=== PATIENT | female | born 1965 | race Caucasian/White ===

== ENCOUNTER 2021-08-15 16:35 | Emergency (ER) | payer OTHER, SELFPAY ==
--- NOTE | 2021-08-15 16:47 | ED.PSYCH ---
HPI - Psych General Chief Complaint: Extremity Injury, Lower Stated Complaint: psych Time Seen by Provider: 08/15/21 16:38 Source: patient and RN notes reviewed Mode of arrival: ambulatory Limitations: no limitations History of Present Illness HPI Narrative: patient refuses to give any information to the cashier or checker stock clerk regarding her address or any other information. Initially she stated that her hips hurt. She was dropped here by the police department. Then after sitting down to interview her she said that her hip to her better and then she became very confrontational. She denies being suicidal or homicidal. MD complaint: other (Fighting with the [employer]im [employer] ) Duration: constant History of same: Yes Context: recent drug abuse Associated psychiatric symptoms: visual hallucinations Related Data Home Medications Medication Instructions Recorded Confirmed No Home Medications 08/15/21 08/15/21 Allergies Allergy/AdvReac Type Severity Reaction Status Date / Time No Known Allergies Allergy Verified 08/15/21 16:51 Review of Systems Review of Systems: unable to answer review of systems due to her schizophrenia [facility] Past Medical History Medical History (Updated 08/15/21 @ 17:02 by Brendan Head MD) Bipolar 1 disorder Borderline personality disorder Schizophrenia Social History Social History (Updated 08/15/21 @ 16:47 by Brendan Head MD) Smoking status: Current every day smoker Alcohol intake: current Substance use: current Substance use type: amphetamines Exam Narrative: female nurse in the room during examination and patient refused to be examined continued to call me names accuse me of murdering people asked me if I have killed anybody. when I approached her to do my physical exam she said get the fuck away from me Course Course Emergency Course: patient completely uncooperative. We will call the police department who dropped her off let them know that she does not want any treatment. Patient is now denying any hip pain. She said that she took some Naprosyn a week ago for hip pain. Discharge Plan Discharge Clinical Impression: Schizophrenia Qualifiers: Schizophrenia type: disorganized schizophrenia Qualified Code(s): F20.1 - Disorganized schizophrenia Patient Disposition: Home, Self-Care Condition: Stable Instructions: Schizophrenia (ED) Prescriptions: No Action No Home Medications RF: 0 Follow-up/Referrals: UNKNOWN,DOCTOR [Primary Care Provider] - Time of Disposition: 17:02
[2021-08-15 16:52] VITALS: BP 128/76; PULSE 88; RESP 16; TEMP 36.2; O2SAT 100
--- NOTE | 2021-08-15 17:08 | PC.NURSE ---
upon entering patient's room ERP with RN patient began accusing erp of killing people, would not answer questions the erp was asking patient and stated to erp get the fuck away from me . Patient was cooperative with RN while in the room with ERP and denied and suicidal, homicidal thoughts and was here to get her hips checked out. patient was asked about recent injury which patient denied. patient was also asked if she had taken anything for the pain and she replied with naproxen. patient was also ask about how her hips were feeling and she stated better now she was laying down. patient was asked if there was anything we could help her with today regarding her hip pain or any other symptoms and she denied. patient reported she has history of schizophrenia, bipolar, and multiple personality disorder. patient was alert and oriented throughout visit.
[2021-08-15 17:13] VITALS: BP 128/76; PULSE 88; RESP 16; TEMP 36.2; O2SAT 100
== END 2021-08-15 17:15 | disposition home or self-care (01) ==
PROVIDERS: Emergency Provider Emergency Medicine
DX: F20.1 Disorganized schizophrenia (principal)
CPT/HCPCS: 99281